=== PATIENT | male | born 1945 | race Caucasian/White ===

== ENCOUNTER → 2017-02-13 | Day surgery (SDC) | payer MEDICARE, BC | LOC: MSO 08:36 | DX: H25.12 Age-related nuclear cataract, left eye (principal) | CPT/HCPCS: 00142; A9270-GY; J0171; J2250; J3010; V2632; V2797 ==

== ENCOUNTER → 2017-03-20 | Day surgery (SDC) | payer MEDICARE, BC | LOC: MSO 11:13 | DX: H25.11 Age-related nuclear cataract, right eye (principal) | CPT/HCPCS: 00142; A9270-GY; J0171; J2550; V2632; V2797 ==

== ENCOUNTER 2017-07-25 23:07 | Emergency (ER) | payer MEDICARE, BC ==
[~2017-07-25] VITALS: Ht 170.2 cm; Wt 86.4 kg
[2017-07-26 00:28] LABS: EOS # 0.1 (0.04-0.40); EOS % 0.8 % (0.0-4.0); HEMATOCRIT 50.4 % (42.0-52.0); HEMOGLOBIN 17.3 g/dL (13.5-18.0); LYMPH# 2.1 (1.50-4.00); MEAN CELL VOLUME 95 fl (78-100); MEAN CORPUSCULAR HEMOGLOBIN 33 pg (27-31); MEAN CORPUSCULAR HGB CONC 34 g/dL (33-37); MEAN PLATELET VOLUME 10.9 fl (7.4-10.4); NEU # 8.8 (1.40-6.50); PLATELET COUNT 181 K/mm3 (130-400)
[2017-07-26 00:41] LABS: URINE APPEARANCE CLEAR; URINE BILIRUBIN NEGATIVE (NEGATIVE); URINE BLOOD NEGATIVE (NEGATIVE); URINE COLOR YELLOW; URINE GLUCOSE NEGATIVE (NEGATIVE); URINE KETONE NEGATIVE (NEGATIVE); URINE LEUKOCYTE ESTERASE NEGATIVE (NEGATIVE); URINE MUCUS PRESENT (NOT PRESENT); URINE NITRATE NEGATIVE (NEGATIVE); URINE PROTEIN(semi-quant) NEGATIVE (NEGATIVE); URINE UROBILINOGEN NORMAL (NORMAL); URINE WBC 0-1 /hpf (0-3)
[2017-07-26 00:42] LABS: ALBUMIN 4.4 g/dL (3.5-5.0); BUN/CREATININE RATIO 19.7 (6.0-26.0); CALCIUM 9.8 mg/dL (8.4-10.2); TOTAL BILIRUBIN 0.8 mg/dL (0.2-1.3); TOTAL PROTEIN 7.9 g/dL (6.3-8.2)
[2017-07-26] MEDS ORDERED: VALIUM 2MG T2 MG/TAB PO (01:07)
[2017-07-26] MEDS ORDERED: ZOFRAN ODT8 M1 PO (01:07)
[2017-07-26 01:18] VITALS: BP 135/90
== END 2017-07-26 01:18 | disposition home or self-care (01) ==
LOC: ED 23:07
PROVIDERS: Nurse Practitioner Family
DX: H81.11 Benign paroxysmal vertigo, right ear (principal)
CPT/HCPCS: J7030